=== PATIENT | female | born 1950 | race Caucasian/White ===

== ENCOUNTER 2025-06-08 22:24 | Inpatient (IN) | payer MEDICARE, BC, SELFPAY ==
[2025-06-08 15:05] VITALS: BP 161/63
[2025-06-08 16:02] LABS: Hematocrit 31.9 % (37.0-47.0); Hemoglobin 11.5 g/dL (12.0-16.0); Mean Corp Hgb Conc. 36.1 g/dL (33.0-37.0); Mean Corpuscular Volume 84.2 fL (81.0-99.0); Nucleated Red Blood Cells % 0 %; Platelet Count 257 10^3/uL (130-400); Red Cell Dist. Width 12.0 % (11.5-14.5)
[2025-06-08 16:05] LABS: Urine Character Slightly Cloudy (Clear)
[2025-06-08 16:10] LABS: ALT (SGPT) 21 U/L (0-35); AST (SGOT) 23 U/L (14-36); Albumin 4.6 g/dl (3.5-5.0); Alkaline Phosphatase 57 U/L (38-126); Blood Urea Nitrogen 26 mg/dl (7-17); Calcium 9.3 mg/dl (8.4-10.2); Carbon Dioxide 26 mmol/L (22-30); Chloride 90 mmol/L (98-107); Glucose 169 mg/dl (70-99); Lipase 160 U/L (23-300); Potassium 3.5 mmol/L (3.5-5.1); Sodium 123 mmol/L (135-145); Total Protein 7.6 g/dl (6.3-8.2); eGFR > 60.00
[2025-06-08 16:47] LABS: Urine Red Blood Cell >100 /HPF (0-2); Urine Squamous Cell 0-2 /LPF (Few)
[2025-06-08 17:03] VITALS: BP 179/74
[2025-06-08] MEDS: NSS 500 IV (18:28)
--- NOTE | 2025-06-08 20:52 | ED.GENMED ---
History of Present Illness
General
Chief Complaint: Fainting Sensation
Source: patient
Exam Limitations: none
Time Seen by Provider: 06/08/25 17:57
Nursing documentation reviewed up to this point in time: agreed with
History of Present Illness
History of Present Illness:
Patient to ED wtih complaint of 'not feeling well'. Reports cold symtpoms started approx 2 days ago. Yesterday she noticed that her urine looked dark so she increased her fluid intake. Today she was still not feeling well and went to PCP for
eval. While in office she had 2 episodes of near syncopy. Sent to ED by PCP. Denies fever/chills, n/v/d. Decreased appetite. Denies any SOB, CP/pressure. No prior history of same.
Past History
Past History
ED Past Medical History: HTN, Hypercholesterolemia and Other (Endometrial cancer, hypercholesterol, hypertension, diabetes type 2)
ED Past Surgical History: Gynecological
Social History
Tobacco: Non-smoker
Alcohol: Occasional
Drug: None
Living: with family
Review of Systems
Review of Systems
Allergies reviewed?: Yes
All Other Systems: ROS reviewed and negative except as documented in HPI and ROS
Constitutional: Reports fatigue
EENT: Reports no symptoms
Respiratory: Reports no symptoms
Cardiac: Reports no symptoms
ABD/GI: Reports other (decreased appetite)
: Reports dark urine
Musculoskeletal: Reports no symptoms
Skin: Reports no symptoms
Neurological: Reports weakness
Psychiatric: Reports no symptoms
Phy Exam
General Physical Exam
General Presentation: mild distress
General age: appears stated age
General Skin: warm and dry
General Habitus: normal
General Mental: alert
Cardiovascular Exam
Cardiovascular Exam: regular rate/rhythm and no edema
Pulmonary Exam
Pulmonary Exam: lungs clear and no respiratory distress
Gastrointestinal Exam
Gastrointestinal Exam: normal bowel sounds, soft, no organomegaly, no pulsatile mass, non distended and no cva tenderness
Palpation: left lower quadrant: Moderate tenderness and right lower quadrant: Moderate tenderness
Musculoskeletal Exam
Musculoskeletal Exam: full ROM and neuro vasc intact
Skin Exam
Skin Exam: normal color, warm/dry and no rash
Psychiatric Exam
Psychiatric Exam: normal mood/affect
Course
Orders/Labs/Results
Orders:
Orders
06/08/25 15:03
EKG [Electrocardiogram (*1)] Urgent
Reason for Study: Syncope
EKG- Treatment ONCE
06/08/25 15:40
Complete Blood Count/With Diff Urgent
Comprehensive Metabolic Panel Urgent
Lipase Urgent
TSH Urgent
Comment: ADD ON
Urinalysis Reflex To Culture Urgent
Date Specimen was Collected: 06/08/25
Time Specimen was Collected: 15:12
Urine Microscopic Reflex Cult Urgent
Urine Culture Urgent
GEETA Source: U
Specimen Description:
Date Specimen was Collected: 06/08/25
Time Specimen was Collected: 15:12
06/08/25 18:19
0.9% Sodium Chloride 500 ml [Nss] 500 ml IV BOLUS
06/08/25 18:20
CT Abd/pelvis W Iv Cont Urgent
Comment:
Reason For Exam: lower abd pain, nausea
06/08/25 21:34
Add On- LAB Stat
Tests Added?: TSH
Osmolality, Random Urine Stat
Date Specimen was Collected: 06/08/25
Time Specimen was Collected: 22:28
Urine Sodium Stat
Date Specimen was Collected: 06/08/25
Time Specimen was Collected: 22:28
06/08/25 21:39
Admit/Transfer Patient As Directed
Co-Sign Provider:
Level of Care: Inpatient admission
Assign to:: Telemetry
Physician / Group: Xochitl
Diagnosis: Hyponatremia
Reason for Telemetry: Syncope
Date to Stop Telemetry: 06/10/25
Time to Stop Telemetry: 11:00
Reason for Hospitalization: Hyponatremia
Expected length of stay greater than two midnights?: Yes
ELOS- Estimated Length of Stay in days: 2
I certify the patient meets the requirements for IP care: Yes
PRN Pain Medication Management As Directed
May give lesser potent ordered pain med per pt: Yes
preference::
Protocol:: Medication orders for pain may be administered in a
manner that supports deferring to patient preference
when the pt is:
- Requesting an ordered lesser potent pain medication.
Least to most potent pain medications are defined
as: acetaminophen < NSAID < tramadol < opioids
(morphine, oxycodone, hydromorphone).
- Requesting a lesser dose of the same medication IF
ORDERED.
- Requesting a less intrusive route of administration
if both routes are prescribed by the provider (PO <
IV).
06/08/25 21:40
Code Status As Directed
Resuscitation Status: Full Code
06/08/25 22:41
Acetaminophen [Tylenol] 650 mg PO DAILYPRN PRN mild pain
Bisacodyl [Dulcolax] 10 mg RECTAL [id number] PRN
Docusate W/Senna [Senokot-S] 1 tablet PO BIDPRN PRN
Ondansetron Injectable [Zofran] 4 mg IV Q6HPRN PRN
Polyethylene Glycol Powder [Miralax] 17 grams PO DAILYPRN PRN
06/08/25 22:41
Activity As Directed
Activity Level: With Assistance
Bedside Glucose Monitoring As Directed
Frequency: AC&HS
Orthostatic Vital Signs As Directed
Orthostatic VS Frequency: Now
Pneumatic Compression Sleeves As Directed
Type: Knee high
Vital Signs As Directed
Frequency: Per unit guidelines
DX Deep Vein Thrombosis Video Routine
06/08/25 23:30
BMP [Basic Metabolic Panel] Routine
06/09/25 Breakfast
1800 calorie (15 carb) Diabetic
At Your Request: Full Participation
Does patient need a safe tray?: No
Fluid Restriction: 1000 mL/day (33 oz)
06/09/25 06:33
Basic Metabolic Panel IN AM
Complete Blood Count/No Diff IN AM
Magnesium IN AM
06/09/25 07:30
Insulin Aspart Corrective Low [Novolog Flexpen-Low Resistance] See Protocol SC AC
06/09/25 08:00
Ezetimibe [Zetia] 10 mg PO DAILY
Losartan [Cozaar] 50 mg PO DAILY
06/09/25 18:00
Pravastatin Sodium [Pravachol] 20 mg PO MOWEFR@1800
06/10/25 11:00
DC Protocol for Telemetry ONCE
Abnormal Lab Results
06/08/25
15:40
RBC 3.79 L 10^6/uL
(4.20-5.40)
Hgb 11.5 L g/dL
(12.0-16.0)
Hct 31.9 L %
(37.0-47.0)
Abs Immat Gran (auto) 0.2 H 10^3/uL
(0-0.05)
Absolute Neuts (auto) 8.7 H 10^3/uL
(1.4-6.5)
Absolute Lymphs (auto) 1.1 L 10^3/uL
(1.2-3.4)
Immature Gran % 1.5 H %
(0-0.5)
Neutrophils % 81.6 H %
(42.2-75.2)
Lymphocytes % 10.6 L %
(20.5-51.1)
Sodium 123 L mmol/L
(135-145)
Chloride 90 L mmol/L
(98-107)
BUN 26 H mg/dl
(7-17)
Glucose 169 H mg/dl
(70-99)
Ur Occult Blood Reflex 4+ A
(Negative)
Leukocyte Esterase Rfl 2+ A
(Negative)
Urine RBC >100 A /HPF
(0-2)
Urine Bacteria (Reflex) Few A
(Negative)
Urine Albumin (Reflex) 3+ A
(Neg - Trace)
06/08/25 15:40
06/08/25 15:40
Vital Signs
Initial and Last Documented VS:
Initial Vital Signs
Temp Pulse Resp BP Pulse Ox
98.3 F 62 16 161/63 100
06/08/25 15:05 06/08/25 15:05 06/08/25 15:05 06/08/25 15:05 06/08/25 15:05
Last Documented Vital Signs
Temp Pulse Resp BP Pulse Ox
98.7 F 85 18 131/89 97
06/09/25 15:15 06/09/25 15:15 06/09/25 15:15 06/09/25 15:15 06/09/25 15:15
*Radiology
Radiology exam reviewed: radiology read reviewed
*Pulse Oximetry
SaO2: 99
Oxygen Mode of Delivery: Room air
Patient hypoxic: no
*Critical Care Note
Total Time (30-74mins, 75-104mins- exclusive of procedures): Not Applicable
Update Note
Update Note:
Patient to ED wt complaint of weakness, 2 near syncopy episodes today. VSS, she remains afebrile. Labs reviewed. Na 123. Patient reports she had a prior episode of hyponatremia approx 1 year while on a cruise. Reports vomiting and diarrhea at
that time and hyponatremia was attibuted to these symptoms. Yesterday patient reports increasing her water intake but report having lilttle to eat or drink today. Will admit to hospitalist for hyponatremia. SHe also has mod pelvic tenderness on
exam. Microscopic blood on urinalysis. No evidence of UTI. CT result reviews, concern for bladder neoplasm. Patient updated on new bladder findings. Dr. Wyatt notified of findings and will follw up with patient in office after discharge.
ED Attending Note
-
Portions of this chart may have been created with voice recognition software.� Occasional wrong word or��sound alike� substitutions may have occurred due to the inherent limitations of voice recognition software.
Discharge Plan
Departure
Patient Disposition: Admit
Date of Disposition: 06/08/25
Time of Disposition: 21:01
Presentation/result/management discussed w/ accepting MD/DO: Hospitalist
Patient with high blood pressure during this ER visit?: No
Condition: Fair
Covid-19: Not Applicable
Discharge Problem:
Acute hyponatremia, Weakness
Interventions
Interventions:
*Risk Screen - Suicide Last Done: 06/08/25 22:50
*General Assessment Last Done: 06/08/25 15:05
*Neglect/Abuse Screening Last Done: 06/08/25 15:05
*ED COVID-19 Vaccine History Last Done: 06/08/25 22:50
*Nursing Disposition Last Done: 06/08/25 22:38
ED- Cardiac Assessment Last Done: 06/08/25 18:18
ED- Neurological Assessment Last Done: 06/08/25 18:18
Discharge Date and Time
Discharge Date/Time: 06/08/25 22:38
--- NOTE | 2025-06-08 21:11 | HPS.HSE ---
Family Physician
-
Family Physician: Yaya Boyle
Chief Complaint
-
Near syncope
History of Present Illness
This is a 74-year-old female with past medical history significant for cxf-vdklbkr-qpshuftyk diabetes, hyperlipidemia, hypertension presenting to the emergency department with complaints of cold symptoms for approximately 2 days and having 2
episodes of near syncope at PMD clinic.
Patient complaint that started about 2 days ago she stated having a very bad colored urine. He also has had increased pelvic pressure. She denied fever. She denies any dysuria incontinence or urgency. She thought that she might have a urinary
tract infection. She also thought that she was having dehydrated. So she started drinking large quantities of water. She was drinking 16 ounces of a bottle of water every 2-3 hours. She was also using urinating quite frequently. She denied any
diarrhea or vomiting. She had mild nausea. She otherwise reports no recent changes in medications and no changes in appetite. She had no chills.
At the PMDs office the patient reported that she felt that her mouth was dry and they needed to lay down. At a time she was found to have a blood pressure of 150 systolic and was sent to the emergency department because she appeared to have
presyncopal episode.
She had an episode of hyponatremia 1 year ago while in the close in the setting of gastroenteritis and dehydration. At that time a triamterene-hydrochlorothiazide was discontinued and she was placed on losartan hydrochlorothiazide. She denies any
other medications. Found to be hyponatremic to 123 in the emergency department today.
In the Emergency Department patient was actually hypertensive at 179/74 with a pulse rate of 74 and satting 98% on room air. Temperature was 98.4.
ECG shows a normal sinus rhythm at a rate of 76. UA was positive for RBCs and few bacteria.
White count 10.7 hemoglobin 11.8 platelet of 254.
Sodium was 123 potassium 3.5 rest of electrolytes BUN/creatinine were normal. Leukos was normal. LFTs were normal.
CT of the abdomen pelvis shows no significant acute abnormalities except a mural base of soft tissue lesion within the urinary bladder suspicious for neoplasm.
Medical History
Past Medical History
Past Medical History: Reports HTN and Hypercholesterolemia
Past Surgical History: Reports Gynocological (Hysterectomy) and Orthopedic
Social History
Tobacco: Non-smoker
Alcohol: None
Drug: None
Family History
Family History: Not pertinent
Allergies / Home Medications
Allergies reflects when Allergies were last updated in [facility].
Home Medications with original date entered in [facility]
Allergy/Medication List:
Allergies
Allergy/AdvReac Type Severity Reaction Status Date / Time
No Known Allergies Allergy Verified 06/08/25 15:12
Home Medications
acetaminophen 325 mg tablet (Tylenol) 650 mg PO DAILYPRN PRN mild pain 06/08/25
biotin 1 tab PO DAILY 06/08/25
cholecalciferol (vitamin D3) 25 mcg (1,000 unit) tablet 25 mcg PO DAILY 06/08/25
ezetimibe 10 mg tablet 10 mg PO DAILY 06/08/25
losartan 50 mg-hydrochlorothiazide 12.5 mg tablet 1 tab PO DAILY 06/08/25
metformin 500 mg tablet,extended release 24 hr 500 mg PO DAILY 06/08/25
pravastatin 20 mg tablet 20 mg PO MOWEFR@1800 06/08/25
therapeutic multivitamin 1 tab PO DAILY 06/08/25
Review of Systems
-
Constitutional: Reports No Symptoms
EENT: Reports No Symptoms
Respiratory: Reports No Symptoms
Cardiac: Reports No Symptoms
Abdomen/GI: Reports No Symptoms
: Reports Dark Urine
Musculoskeletal: Reports No Symptoms
Skin: Reports No Symptoms
Neurological: Reports No Symptoms
Endocrine: Reports No Symptoms
Hematologic/Lymphatic: Reports No Symptoms
Psych: Reports No Symptoms
Physical Exam
Vital Signs
Vital Signs
Temp Pulse Resp BP Pulse Ox
98.4 F 74 17 179/74 99
06/08/25 17:03 06/08/25 18:15 06/08/25 18:15 06/08/25 17:03 06/08/25 21:01
Physical Exam
General: Well Developed, Well Nourished and No Apparent Distress
HEENT: NormoCephalic, Moist mucous membranes and Atraumatic
Respiratory: Clear
Cardiac: S1/S2 and Regular Rhythm; No Murmur or Rub
GI: Soft, Non Tender, Non Distended and Normal Bowel Sounds; No Organomegaly
Rectal: Deferred by Provider
Musculoskeletal: No Clubbing, No Cyanosis and No Edema
Skin: No Rash
Neuro: AO x 3 and Nonfocal/grossly intact
Laboratory Results
-
06/08/25 15:40
06/08/25 15:40
Laboratory Results
Total Bilirubin 0.9 mg/dl (0.2-1.3) 06/08/25 15:40
AST 23 U/L (14-36) 06/08/25 15:40
ALT 21 U/L (0-35) 06/08/25 15:40
Alkaline Phosphatase 57 U/L (38-126) 06/08/25 15:40
Lipase 160 U/L (23-300) 06/08/25 15:40
Data Reviewed
-
CT Scan: Report Reviewed by me
Medical Tests (Nuc Med, Echo, EKG etc): Image Personally Visualized and interpreted
Lab Data: Labs Reviewed by me
Old Records: Reviewed
Impression/Plan
-
IMPRESSION:
74-year-old female with past medical history of hypertension and hyperlipidemia as well as vax-qgdpruz-jvaeajdcq diabetes who presents to the emergency department following a presyncopal episode at the PMD clinic. She was visiting PMD clinic for
approximately 2 days of dark urine and found to have hematuria in the emergency department. Here on arrival in the emergency department she was normotensive but found to be hyponatremic to 123. CT scan shows lesion in the bladder
PLAN:
Presyncope -suspect vasovagal. No cardiac history. No history of significant dehydration. Hyponatremia does not appear to be due to dehydration. No of any medications. ECG shows normal sinus rhythm and no ischemia here.
-Admit to telemetry
- Echo in a.m.
-Orthostatic vital signs
- monitor x 24 hours
- trend H&H
Hyponatremia -suspect polydipsia hyponatremia given history of attempting to dilute urine with free water intake
-Obtain urine awesome's and urine sodium
-Check TSH
-Check orthostatic
-Hold hydrochlorothiazide
-Restrict free water to less than 1000 cc, repeat sodium in 4 hours
-Giving 500 cc bolus of normal saline, no additional fluids for now
Hematuria -gross hematuria likely secondary to bladder neoplasm, no urinary obstruction
-UA mildly positive but no signs of infection, obtain urine cultures
-Hold antibiotics for now unless febrile or develops worsening symptoms
- Dr. Wyatt said she can follow up after discharge and he will schedule a cystoscopy at that time.
DVT prophylaxis�SCDs for now
CODE STATUS�full code
[2025-06-08 22:39] LABS: TSH 1.09 uIU/ml (0.47-4.68)
[2025-06-08 22:45] VITALS: BP 165/69; BP 170/80; BP 178/70; PULSE 65; PULSE 68; PULSE 75
[2025-06-08 23:02] VITALS: BMI 33.6
[2025-06-09] VITALS (7 sets, daily range): BP systolic 131–166; BP diastolic 57–89
[2025-06-09 01:11] LABS: Blood Urea Nitrogen 22 mg/dl (7-17); Calcium 9.1 mg/dl (8.4-10.2); Carbon Dioxide 26 mmol/L (22-30); Chloride 95 mmol/L (98-107); Estimated Creatinine Clearance 60 ml/min; Glucose 132 mg/dl (70-99); Potassium 3.4 mmol/L (3.5-5.1); Sodium 129 mmol/L (135-145); eGFR > 60.00
[2025-06-09 07:13] LABS: Glucose - Point of Care 134 mg/dl (70-99)
[2025-06-09 08:25] LABS: Hematocrit 31.7 % (37.0-47.0); Hemoglobin 11.3 g/dL (12.0-16.0); Mean Corp Hgb Conc. 35.6 g/dL (33.0-37.0); Mean Corpuscular Volume 84.8 fL (81.0-99.0); Platelet Count 243 10^3/uL (130-400); Red Cell Dist. Width 12.3 % (11.5-14.5)
[2025-06-09 08:29] LABS: Blood Urea Nitrogen 21 mg/dl (7-17); Calcium 9.5 mg/dl (8.4-10.2); Carbon Dioxide 25 mmol/L (22-30); Chloride 97 mmol/L (98-107); Estimated Creatinine Clearance 68 ml/min; Glucose 129 mg/dl (70-99); Magnesium 1.9 mg/dl (1.6-2.3); Potassium 3.8 mmol/L (3.5-5.1); Sodium 130 mmol/L (135-145); eGFR > 60.00
--- NOTE | 2025-06-09 08:37 | W.PN.HOSP.TC ---
Today's Communication/Plan
-
see plan
Assessment / Plan
Assessment / Plan
Gen: NAD, AAOx3.
Eyes: EOMI, PERRLA, no scleral icterus.
Neck: supple.
CV: RRR, +S1/S2, no m/r/g.
Resp: CTAB, no rales, wheezes, or rhonchi.
Abd: +BS, soft, NT, ND
Skin: No rashes.
Neuro: CN 2-12 intact, non-focal.
Psych: Normal mood and affect.
CT A/P:
1. No significant acute abnormality identified in the abdomen or pelvis, as described above.
2. Mural-based soft tissue lesion within the urinary bladder, suspicious for neoplasm. Recommend direct visualization.
3. Mildly complex 2.0 cm right renal cyst. Recommend initial outpatient further workup with dedicated renal ultrasound.
Near syncope:
-Likely vasovagal
-monitor on tele (currently SR)
-orthostatic VS technically POS with HR increase by 10 but standing BP 165
-check echo
Hyponatremia due to psychogenic polydipsia:
-patient was attempting to dilute urine with excess free water intake
-s/p 500cc NS in ER, no further IVFs
-cont FR
-Na improved from 123 to 130
Gross hematuria:
-likely secondary to bladder lesion (possibly neoplasm), no urinary obstruction
-U/A without evidence of infection (WBC 3-5, NEG NIT), afebrile, no leukocytosis
-Dr. Wyatt stated to admitting team she can follow up after discharge and he will schedule a cystoscopy at that time. As pt with persistent hematuria she needs to be seen in c/s while hospitalized. Discussed with Dr. Stafford.
FULL/SCDs
Anticipated Discharge: Within 24 hours
Subjective/Interval History
-
Date of Service: June 09, 2025
Reports persistent hematuria.
Objective Data
-
Labs:
Laboratory Results
06/09/25 06/09/25
00:41 06:33
WBC 10.0
Hgb 11.3 L
Hct 31.7 L
Plt Count 243
Sodium 129 L 130 L
Potassium 3.4 L 3.8
Chloride 95 L 97 L
Carbon Dioxide 26 25
BUN 22 H 21 H
Creatinine 0.8 0.7
Glucose 132 H 129 H
Calcium 9.1 9.5
Vital Signs:
Vital Signs
Temp Pulse Resp BP Pulse Ox
98.7 F 76 20 152/70 98
06/09/25 07:20 06/09/25 07:20 06/09/25 07:20 06/09/25 07:20 06/09/25 07:20
I&O
06/08/25 06/09/25 06/10/25
06:59 06:59 06:59
Intake Total 120 / 120
Balance 120 / 120
[2025-06-09] MEDS: COZAAR 50 MG PO (09:35)
[2025-06-09] MEDS: ZETIA 10 MG PO (09:35)
[2025-06-09 11:49] LABS: Glucose - Point of Care 148 mg/dl (70-99)
--- NOTE | 2025-06-09 13:45 | CM ---
Patient seen bedside w/ daughterOnelia. Initial assessment completed. Patient is a 74-year-old female with past medical history significant for biw-mgghhov-nnkmzqwbl diabetes, hyperlipidemia, hypertension presenting to the emergency department with
complaints of cold symptoms for approximately 2 days and having 2 episodes of near syncope.
Patient resides w/ daughterOnelia, in a 2ST[facility], no steps to enter. Patient is independent w/ ambulation, no device required. Independent w/ ADLs, no DME. Denies SNF/HC hx.
Address, points of contacts and insurance
PCP: Yaya Boyle
Pharmacy: [facility]
Plan: Home, no needs anticipated
[2025-06-09 16:43] LABS: Glucose - Point of Care 132 mg/dl (70-99)
[2025-06-09] MEDS: PRAVACHOL 20 MG PO (17:19)
--- NOTE | 2025-06-09 17:26 | CONS.URO ---
Consultation
-
Date/Time Consultation Requested: 06/09/25
Date/Time Consultation Performed: 06/09/25 1230
Requesting Provider: Carlos Enrique
Performing Provider: Yoselin
Reason for Consultation: hematuria, bladder mass
Medical History
History of Present Illness
74F w/ no prior h/o gross or microscopic hematuria now presenting with hematuria (improving) >48 hrs.
Noted 'not feeling well' 2-3 days ago w/ cold symptoms.
Urine was tea-colored and dark in appearance - increased fluid intake to dilute urine.
Admitted for hyponatremia.
CT imaging demonstrated 1.8 cm soft tissue mass.
Denies prior urologic history.
Denies tobacco history.
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
Past Medical History
Past Medical History: HTN and Hypercholesterolemia
Past Surgical History: Gynocological and Orthopedic
Social History
Tobacco: Non-smoker
Alcohol: None
Drug: None
Employment: Retired
Family History
Family History: Reviewed & Not Pertinent
Allergies/Home Medications
Allergies
Allergy/AdvReac Type Severity Reaction Status Date / Time
No Known Allergies Allergy Verified 06/08/25 15:12
Home Medications
�Medication �Instructions �Recorded �Confirmed �Type
acetaminophen 325 mg tablet 650 mg PO DAILYPRN PRN mild pain 06/08/25 06/08/25 History
(Tylenol)
biotin 1 tab PO DAILY Supplement 06/08/25 06/08/25 History
cholecalciferol (vitamin D3) 25 25 mcg PO DAILY Supplement 06/08/25 06/08/25 History
mcg (1,000 unit) tablet
ezetimibe 10 mg tablet 10 mg PO DAILY Supplement 06/08/25 06/08/25 History
losartan 50 mg-hydrochlorothiazide 1 tab PO DAILY Blood Pressure 06/08/25 06/08/25 History
12.5 mg tablet
metformin 500 mg tablet,extended 500 mg PO DAILY Diabetes 06/08/25 06/08/25 History
release 24 hr
pravastatin 20 mg tablet 20 mg PO MOWEFR@1800 High 06/08/25 06/08/25 History
Cholesterol
therapeutic multivitamin 1 tab PO DAILY Supplement 06/08/25 06/08/25 History
Review of Systems
-
History Source: Patient and Family
A 12 point Review of Systems was completed except as noted: Yes
Physical Exam
Vital Signs
Vital Signs
Temp Pulse Resp BP Pulse Ox
98.7 F 85 18 131/89 97
06/09/25 15:15 06/09/25 15:15 06/09/25 15:15 06/09/25 15:15 06/09/25 15:15
Lab / Testing Results
Laboratory Results
06/09/25 06:33
06/09/25 06:33
Physical Exam
General: Well Developed, Well Nourished, No Apparent Distress and Comfortable
HEENT: Normocephalic and Anicteric
Respiratory: Non Labored Respirations
Cardiac: Regular Rhythm
Breast: Deferred by me
GI: Soft, Non Tender and Non Distended
Genito-urinary: No Costovertebral Tend and Other (tea-colored urine)
Musculoskeletal: No Edema
Skin: Warm and Dry
Neuro: AO x 3, No Motor Deficits and Nonfocal/Grossly Intact
Hematologic/Lymphatic: No Lymphadenopathy
Psych: Calm and Intact Judgement
Assessment / Plan
-
Hematuria - improving
Bladder mass suspicious for tumor
H/H stable
Cr WNL
Urine output marilyn-colored - improved in 48 hrs
CTAP w/ IV contrast =>
1. No significant acute abnormality identified in the abdomen or pelvis, as described above.
2. Mural-based soft tissue lesion within the urinary bladder, suspicious for neoplasm. Recommend direct visualization.
3. Mildly complex 2.0 cm right renal cyst. Recommend initial outpatient further workup with dedicated renal ultrasound.
Discussed CT findings in context of hematuria and need for cystoscopy to r/o bladder tumor.
Detailed discussion including SDM had w/ patient regarding risks, benefits, alternatives, and potential complications of cystoscopy, TURBT, and intravesical instillation of gemcitabine.
Inpatient TURBT was discussed - given her minimal hematuria and contrast-enhanced CT imaging indicative of a small bladder tumor, patient wishes to proceed w/ outpatient cystoscopy and potential TURBT if indicated (elective).
- CT imaging/report reviewed
- Will schedule outpatient cystoscopy week of 06/21 after patient returns from trip
D/w patient and daughter at bedside.
D/w Dr. Monaco.
Data Reviewed
-
Total Time Spent with Patient (in minutes): 55
CT Scan: Image personally visualized and interpreted, Report Reviewed by Me, Discussed with Physician, Discussed with Patient and Discussed with Family
Lab Data: Labs Reviewed, Discussed with Physician, Discussed with Patient and Discussed with Family
Old Records: Reviewed
[2025-06-09] MEDS: GLUCOPHAGE XR EXTENDED RELEASE 500 MG PO (17:43)
--- NOTE | 2025-06-09 22:33 | PTCARENOTE ---
patient juice with first degree heart block, dipping to as low at 27. provider notified, this RN suggesting EKG. EKG ordered, vital signs obtained, 2 L NC placed on patient. This RN will continue to monitor
[2025-06-09 23:57] LABS: Hematocrit 32.3 % (37.0-47.0); Hemoglobin 11.3 g/dL (12.0-16.0); Mean Corp Hgb Conc. 35.0 g/dL (33.0-37.0); Mean Corpuscular Volume 87.1 fL (81.0-99.0); Platelet Count 250 10^3/uL (130-400); Red Cell Dist. Width 12.4 % (11.5-14.5)
[2025-06-10 00:26] VITALS: BP 147/57
[2025-06-10 00:26] LABS: Blood Urea Nitrogen 19 mg/dl (7-17); Calcium 9.1 mg/dl (8.4-10.2); Carbon Dioxide 28 mmol/L (22-30); Chloride 97 mmol/L (98-107); Estimated Creatinine Clearance 60 ml/min; Glucose 111 mg/dl (70-99); Magnesium 2.0 mg/dl (1.6-2.3); Potassium 4.2 mmol/L (3.5-5.1); Sodium 132 mmol/L (135-145); eGFR > 60.00
[2025-06-10 03:32] VITALS: BP 140/72
[2025-06-10 07:00] VITALS: BP 141/55
[2025-06-10 08:14] LABS: Glucose - Point of Care 129 mg/dl (70-99)
--- NOTE | 2025-06-10 09:24 | CON.CAR ---
Addendum entered and electronically signed by Layo Aguero MD 06/10/25 11:00:
I saw and examined the patient independently.
The MASK DESIGNER's note was reviewed and I agree with the note with changes/additions as noted below.
Comment:
74 yo female with PMH of HTN, hyperlipidemia admitted with dizziness/pre-syncope, hematuria,hyponatremia. We are consulted to evaluate for cardiac etiology for dizziness/pre-syncope. She currently feels back to baseline. Exam with RRR, no murmurs,
no edema. Tele: sinus, occasional PVC's. EKG: sinus, 1st degree AVB. Echo: normal LVEF, mild AR.
Dizziness/presyncope. Suspect vasovagal. No significant rhythm abnormality on tele. No significant structural heart disease on echo.
1st degree AVB: benign.
She can follow up with cardiology as needed.
Original Note:
Consultation
Consultation Request
Date/Time Consultation Requested: 06/09/25 2252
Date/Time Consultation Performed: 06/10/25 0900
Requesting Provider: Oly Bergeron NP
Performing Provider: Miriam HINSON for Dr. Aguero
Reason for Consultation: 1st degree AVB
Medical History
-
Chief Complaint: dizziness, hematuria
History of Present Illness:
74 y/o female with HTN, HLD, preDM, hx endometrial cancer s/p hysterectomy who recently noted some hematuria and started drinking a lot of fluid and went to see her medical provider. In the providers office, she was sitting and felt hot and dry
mouth and felt spotty vision and thought she might pass out so had water and laid down and felt better, but when she got up she was dizzy again so was referred to the ER. NA+ was 123. Hematuria noted and mass seen and urology planning on OP work-up.
We are consulted for 1st degree AVB and bradycardia noted on monitor. Fortunately, all telemetry reviewed by me and there was no significant bradycardia by manual count. When the monitor reported HR in 20's, it was actually in 50's. Regarding 1st
degree AVB, this is very minimal at 224 ms. She looks well at the time of my assessment.
Past Medical History
Past Medical History: HTN, Hypercholesterolemia and Other (as above )
Social History
Tobacco: Non-Smoker
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
Family History
Family History: Other (dad had heart issues and when patient was young- details unknown)
Allergies / Home Medications
Allergy/AdvReac Type Severity Reaction Status Date / Time
No Known Allergies Allergy Verified 06/08/25 15:12
�Medication �Instructions �Recorded �Confirmed �Type
acetaminophen 325 mg tablet 650 mg PO DAILYPRN PRN mild pain 06/08/25 06/08/25 History
(Tylenol)
biotin 1 tab PO DAILY Supplement 06/08/25 06/08/25 History
cholecalciferol (vitamin D3) 25 25 mcg PO DAILY Supplement 06/08/25 06/08/25 History
mcg (1,000 unit) tablet
ezetimibe 10 mg tablet 10 mg PO DAILY Supplement 06/08/25 06/08/25 History
losartan 50 mg-hydrochlorothiazide 1 tab PO DAILY Blood Pressure 06/08/25 06/08/25 History
12.5 mg tablet
metformin 500 mg tablet,extended 500 mg PO DAILY Diabetes 06/08/25 06/08/25 History
release 24 hr
pravastatin 20 mg tablet 20 mg PO MOWEFR@1800 High 06/08/25 06/08/25 History
Cholesterol
therapeutic multivitamin 1 tab PO DAILY Supplement 06/08/25 06/08/25 History
Review of Systems
-
History Source: Patient
All other systems: Negative unless noted
: Bleeding
Neurological: Dizzy
Physical Exam
Vital Signs
Temp Pulse Resp BP Pulse Ox
97.9 F 68 18 140/72 97
06/10/25 03:32 06/10/25 03:32 06/10/25 03:32 06/10/25 03:32 06/10/25 03:32
Lab Results
06/09/25 23:45
06/09/25 23:45
Physical Exam
General: Well Developed, Well Nourished and No Apparent Distress
HEENT: Normocephalic and Anicteric
Respiratory: Clear and Non Labored Respirations
Cardiac: Regular Rhythm
Musculoskeletal: No Edema
Skin: Warm and Dry
Neuro: AO x 3
Psych: Calm
Impression / Plan
-
Bradycardia, 1st degree AVB:
-ZAIN is mildly prolonged at 224 ms.
-telemetry shows no severe bradycardia. HR 70's currently, as low as 50's overnight- all sinus
-echo 06/09/25: Normal biventricular size and systolic function without regional wall motion abnormality. Stage II diastolic dysfunction suggestive of abnormal relaxation and increased filling pressures. Mild aortic regurgitation.
-no further cardiac work-up necessary
Hematuria:
-CT revealed bladder lesion, renal cyst- urology on the case and planning for OP w/u
Dizziness:
-resolved, was in setting of hyponatremia- see below
Hyponatremia:
-was drinking a lot of fluid
-improved
-off HCTZ
HTN:
-continue losartan, monitor BP's
HLD:
-on statin/zetia
Data Reviewed
-
EKG: Tracing Personally Visualized and interpreted (SB 53 BPM with 1st degree AVB, ZAIN 224 ms)
CT Scan: Report Reviewed by me (Mural-based soft tissue lesion within the urinary bladder, suspicious for neoplasm. Mildly complex 2.0 cm right renal cyst. )
Medical Tests (Nuc Med, Echo etc): Report Reviewed by me (echo 06/09/25: Normal biventricular size and systolic function without regional wall motion abnormality. Stage II diastolic dysfunction suggestive of abnormal relaxation and increased
filling pressures. Mild aortic regurgitation.)
Labs: Labs Reviewed by me
[2025-06-10] MEDS: COZAAR 50 MG PO (09:47)
[2025-06-10] MEDS: ZETIA 10 MG PO (09:47)
--- NOTE | 2025-06-10 10:35 | W.PN.HOSP.TC ---
Addendum entered and electronically signed by Nato Monaco MD 06/10/25 11:49:
Total time spent on d/c = 35 min. This included today's physical exam, progress note, review of laboratory and diagnostic data, preparation of discharge documents and prescriptions, and discussions about the pt's hospital course and discharge plan
with the patient and other medical csr involved in the patient's care.
Original Note:
Today's Communication/Plan
-
see plan
Assessment / Plan
Assessment / Plan
Gen: NAD, AAOx3.
Eyes: EOMI, PERRLA, no scleral icterus.
Neck: supple.
CV: remains RRR, +S1/S2, no m/r/g.
Resp: remains CTAB, no rales, wheezes, or rhonchi.
Abd: remains +BS, soft, NT, ND
Skin: No rashes.
Neuro: CN 2-12 intact, non-focal.
Psych: Normal mood and affect.
06/08/25 15:40 Urine Urine Culture - Preliminary
Staphylococcus species
CT A/P:
1. No significant acute abnormality identified in the abdomen or pelvis, as described above.
2. Mural-based soft tissue lesion within the urinary bladder, suspicious for neoplasm. Recommend direct visualization.
3. Mildly complex 2.0 cm right renal cyst. Recommend initial outpatient further workup with dedicated renal ultrasound.
Echo: Normal biventricular size and systolic function without regional wall motion abnormality. Stage II diastolic dysfunction suggestive of abnormal relaxation and increased filling pressures. Mild aortic regurgitation. No prior study available for
comparison.
Near syncope:
-Likely vasovagal
-monitor on tele (currently SR)
-orthostatic VS technically POS with HR increase by 10 but standing BP 165
-echo above
-pt seen by cardiology and Dr. Aguero has cleared the pt for discharge
Hyponatremia due to psychogenic polydipsia:
-patient was attempting to dilute urine with excess free water intake
-s/p 500cc NS in ER, no further IVFs
-cont FR
-Na improved from 123 to 132
Gross hematuria:
-likely secondary to bladder lesion (possibly neoplasm), no urinary obstruction
-U/A without evidence of infection (WBC 3-5, NEG NIT), afebrile, no leukocytosis
-Uro following. Discussed with Dr. Wyatt on 06/09/25. He was concerned that the patient has a UTI. Urine culture noted with staph species. Will consult ID for opinion.
-Hb stable
FULL/SCDs
Dispo: Likely d/c after seen by ID
Anticipated Discharge: Today
Subjective/Interval History
-
Date of Service: June 10, 2025
No new complaints. Urine is now much clearer.
Objective Data
-
Labs:
Laboratory Results
06/09/25
23:45
WBC 9.1
Hgb 11.3 L
Hct 32.3 L
Plt Count 250
Sodium 132 L
Potassium 4.2
Chloride 97 L
Carbon Dioxide 28
BUN 19 H
Creatinine 0.8
Glucose 111 H
Calcium 9.1
Vital Signs:
Vital Signs
Temp Pulse Resp BP Pulse Ox
98.0 F 59 18 141/55 98
06/10/25 07:00 06/10/25 07:00 06/10/25 07:00 06/10/25 07:00 06/10/25 07:00
I&O
06/09/25 06/10/25 06/11/25
06:59 06:59 06:59
Intake Total 120 / 120 520 / 520
Balance 120 / 120 520 / 520
[2025-06-10 11:00] VITALS: BP 155/78
--- NOTE | 2025-06-10 11:33 | CON.ID ---
Consultation
-
Date/Time Consultation Requested: 06/10/2025 1042
Date/Time Consultation Performed: 06/10/2025 1118
Requesting Provider: Dr. Monaco
Performing Provider: Dr. Gallardo
Reason for Consultation: Abnormal urinalysis
Chief Complaint / Past History
History of Present Illness
Esmer Baumann is a 74-year-old female with a significant past medical history of endometrial CA being evaluated at the request of Dr. Monaco in regards to an abnormal urinalysis. History is obtained from chart review, along with patient interview.
The patient presented to [facility] on 06/08 secondary to 'not feeling well'. She reported symptoms initially began approximate 48 hours prior to presentation to the ER. The day before admission she noted that her urine appeared 'dark' so
she increased her fluid intake, but on the day of admission she continued to not feel well and was seen by her PCP for eval. While in the office she reports 2 episodes of near syncope and she was sent to the emergency room for further evaluation.
No history of fevers or chills. No history of nausea, diarrhea. She denies any shortness of breath or cough.
In the ER, she was noted to be hypertensive. Urinalysis was noted to have significant RBCs, but with a paucity of white cells. Urine culture shows a staph species, and Infectious Diseases is asked to comment upon further antimicrobial management.
Patient denies any fevers or chills at present. No dysuria.
Past History
Additional Past Medical History:
HTN
HLD
hx Endometrial CA
DM type II
Additional Past Surgical History:
LIDIA
Allergy History:
No Known Allergies Allergy (Verified 06/08/25 15:12)
Medications Reviewed: Yes
Current Antibiotics:
Vanco
Social History
Tobacco: Non-Smoker
Alcohol: Occasional
Drug: None
Living: With Family
Employment: Retired
Review of Systems
Vital Signs
Temp Pulse Resp BP Pulse Ox
98.0 F 59 18 141/55 98
06/10/25 07:00 06/10/25 07:00 06/10/25 07:00 06/10/25 07:00 06/10/25 07:00
Physical Exam
Physical Exam
Constitutional: No Acute Distress, Comfortable and Non-toxic
Eyes: No Conjunctival Hemorrhage and Sclera Anicteric
Cardiovascular: S1/S2; Negative S3/S4
Pulmonary: Non Labored
Gastrointestinal: Soft, Non Tender and Non Distended
Neurological: Awake and Alert
Psychological: Calm
.
Lab / Diagnostic Study Results
06/09/25 23:45
06/09/25 23:45
Abs Immat Gran (auto) 0.2 10^3/uL (0-0.05) H 06/08/25 15:40
Absolute Neuts (auto) 8.7 10^3/uL (1.4-6.5) H 06/08/25 15:40
Absolute Lymphs (auto) 1.1 10^3/uL (1.2-3.4) L 06/08/25 15:40
Absolute Monos (auto) 0.6 10^3/uL (0.1-0.6) 06/08/25 15:40
Absolute Basos (auto) 0.0 10^3/uL (0-0.2) 06/08/25 15:40
Immature Gran % 1.5 % (0-0.5) H 06/08/25 15:40
Neutrophils % 81.6 % (42.2-75.2) H 06/08/25 15:40
Lymphocytes % 10.6 % (20.5-51.1) L 06/08/25 15:40
Monocytes % 5.7 % (1.7-9.3) 06/08/25 15:40
Eosinophils % 0.2 % (0-6) 06/08/25 15:40
Basophils % 0.4 % (0-2) 06/08/25 15:40
Ur Squamous Epith Cells 0-2 /LPF (Few) 06/08/25 15:40
Microbiology Results
Micro:
06/08/25 15:40 Urine Culture - Preliminary
Urine Staphylococcus species (70k cfu/mL)
Imaging:
06/08/2025 CT abdomen/pelvis with contrast : 1. No significant acute abnormality identified in the abdomen or pelvis, as described above. 2. Mural-based soft tissue lesion within the urinary bladder, suspicious for neoplasm. Recommend direct
visualization. 3. Mildly complex 2.0 cm right renal cyst. Recommend initial outpatient further workup with dedicated renal ultrasound.
Assessment / Plan
Presyncopal events
Hematuria
Bladder mass; awaiting workup
HTN
HLD
Endometrial CA
DM type II
Recommendations:
Urinalysis without significant pyuria. [place] count of recovered staph species less than 70,000, and patient without symptomatology.
No need for antibiotic coverage at present.
Discontinue antibiotics. Maintain good fluid hydration.
No objection from discharge from ID standpoint.
Patient to follow-up with Urology regarding bladder mass as an outpatient.
Care Review
Plan reviewed with: Physician (Hospitalist; Urology)
--- NOTE | 2025-06-10 11:37 | W.PN.UPDATE ---
Update Note
Progress Note Update
CT findings indicative of 1.8 cm mural lesion in bladder - suspicious for small bladder tumor.
Discussed diagnostic cysto and plans for blue light TURBT + intravesical gemcitabine (pending cysto findings) at length w/ patient and daughter.
Plan:
- OK to d/c home from urologic perspective
- Patient scheduled for diagnostic cysto on 06/22 after returning from trip (per patient request)
D/w Dr. Monaco.
D/w patient and daughter.
--- NOTE | 2025-06-10 12:18 | CM ---
Chart reviewed. Patient for d/c today
Spoke w/ patient, aware of d/c. Daughter will transport home
IMM verbally reviewed, copy provided, copy on chart
No needs at this time
Plan: Home, no needs
--- NOTE | 2025-06-10 15:28 | W.DCSUMMARY ---
Discharge Summary
Discharge Data
Date of Admission: 06/08/25
Date of Discharge: 06/10/25
-
Pending Results: No
Hospital Course
Primary diagnoses:
Hematuria
Bladder mass
Near syncope which was likely vasovagal
Hyponatremia due to psychogenic polydipsia
Secondary diagnoses:
Obesity due to excess calories
Consultants:
Neurology
Infectious disease
Imaging:
CT A/P:
1. No significant acute abnormality identified in the abdomen or pelvis, as described above.
2. Mural-based soft tissue lesion within the urinary bladder, suspicious for neoplasm. Recommend direct visualization.
3. Mildly complex 2.0 cm right renal cyst. Recommend initial outpatient further workup with dedicated renal ultrasound.
Echo: Normal biventricular size and systolic function without regional wall motion abnormality. Stage II diastolic dysfunction suggestive of abnormal relaxation and increased filling pressures. Mild aortic regurgitation. No prior study available for
comparison.
74-year-old female who presented with a chief complaints of near syncope as outlined in the H&P done on admission. Hospital course by problem list:
Near syncope: This was likely vasovagal. The patient was seen in consultation by cardiology. The patient had no concerning rhythms on telemetry. Orthostatic vital signs were technically positive with HR increase by 10 but standing BP 165. Echo
above. Dr. Aguero cleared the patient for discharge.
Hyponatremia due to psychogenic polydipsia: The patient was attempting to dilute urine with excess free water intake. She received 500cc NS in ER followed by a fluid restriction. Her Na improved from 123 to 132.
Gross hematuria: Imaging above. This was likely secondary to bladder lesion (possibly neoplasm), no urinary obstruction. UTI was ruled out while hospitalized. The patient's hemoglobin remained stable and her urine somewhat cleared. As per
Yoselin the patient will have an outpatient TURBT.
Discharge Plan
-
Patient Disposition: Home (Routine Discharge)
Discharge Diagnosis/Procedures: Hematuria, bladder mass, near syncope which was likely vasovagal, hyponatremia due to psychogenic polydipsia
Condition: Good
Diet: Diabetic, Carb Controlled
Activity: As tolerated
Driving Restrictions: As prior to admission
Blood Work: BMP and CBC in 1 week, prescription from PCP
Referrals:
Layo Aguero MD [Active, Cardiology]
Referral Note: as needed
J Luis Wyatt MD [Active, Urology]
Referral Note: Please call [phone] to schedule a preop visit and cystoscopy the week of 06/21/[address] Wyatt.
Yaya Boyle DO [Family Provider, Internal Medicine]
Prescriptions:
Continued
acetaminophen [Tylenol] 325 mg Tablet
650 mg PO DAILYPRN PRN (Reason: mild pain)
therapeutic multivitamin Tablet
1 tab PO DAILY
pravastatin 20 mg tablet
20 mg PO MOWEFR@1800
losartan-hydrochlorothiazide 50-12.5 mg tablet
1 tab PO DAILY
metformin 500 mg tablet extended release 24 hr
500 mg PO DAILY
ezetimibe 10 mg tablet
10 mg PO DAILY
cholecalciferol (vitamin D3) 25 mcg (1,000 unit) Tablet
25 mcg PO DAILY
biotin
1 tab PO DAILY
Discharge Orders:
Discharge Patient (As Directed); Ordered 06/10/25
Ordered By: Nato Monaco
Discharge Date and Time
Discharge Date/Time: 06/10/25 13:22
Print Language: [place]
== END 2025-06-10 13:22 | disposition home or self-care (01) | DRG 641 ==
LOC: 4 WEST ACU 22:24
PROVIDERS: ADMITTING PHYSICIAN Internal Medicine; ATTENDING PHYSICIAN Internal Medicine; CONSULT PHYSICIAN Internal Medicine Infectious Disease; EMERGENCY PHYSICIAN Emergency Medicine; FAMILY PHYSICIAN Internal Medicine; OTHER PHYSICIAN Internal Medicine; OTHER PHYSICIAN Surgery
DX: E87.1 Hypo-osmolality and hyponatremia (principal); E11.9 Type 2 diabetes mellitus without complications; E78.00 Pure hypercholesterolemia, unspecified; I10 Essential (primary) hypertension; E86.0 Dehydration; R63.1 Polydipsia; I44.0 Atrioventricular block, first degree; R82.90 Unspecified abnormal findings in urine; E66.09 Other obesity due to excess calories; J00 Acute nasopharyngitis [common cold]; I49.3 Ventricular premature depolarization; R31.0 Gross hematuria; D49.4 Neoplasm of unspecified behavior of bladder; N28.1 Cyst of kidney, acquired; Z85.42 Personal history of malignant neoplasm of other parts of uterus; Z90.710 Acquired absence of both cervix and uterus; Z79.84 Long term (current) use of oral hypoglycemic drugs; Z68.33 Body mass index [BMI] 33.0-33.9, adult
CPT/HCPCS: 74177; 80048; 80053; 81003; 81015; 82962; 83690; 83735; 83935; 84300; 84443; 85025; 85027; 87086; 87147; 87186; 93005; 93306; 96360; 99285; Q9967

== ENCOUNTER 2025-07-05 05:54 | Day surgery (SDC) | payer MEDICARE, BC, SELFPAY ==
[2025-07-05] VITALS (11 sets, daily range): BP systolic 115–181; BP diastolic 40–76; BMI 32.2
[2025-07-05] MEDS: CYSVIEW KIT 100 MG INTRAVES (06:20)
[2025-07-05] MEDS: NORMOSOL-R/PLASMALYTE-A 1000 IV (06:30)
[2025-07-05 06:40] LABS: Glucose - Point of Care 138 mg/dl (70-99)
[2025-07-05 08:32] LABS: Glucose - Point of Care 120 mg/dl (70-99)
[2025-07-05] MEDS: SYRINGE NON-PUMP 50 ML IRRIG ×2 (08:44→08:45)
[2025-07-05] MEDS: SYRINGE NON-PUMP 50 MG IRRIG ×2 (08:44→08:45)
--- NOTE | 2025-07-05 12:00 | HP.FOC2 ---
Focused History & Physical
Chief Complaint
HPI:
Chief Complaint: hematuria, bladder tumor
HPI / Indication for Planned Procedure: 75F initially admitted in 05/2025 with hematuria and hyponatremia.
CT imaging notable for a bladder tumor (soft tissue lesion from mural base suspicious for neoplasm).
Patient subsequently underwent diagnostic cystoscopy in the office confirming a papillary bladdre tumor.
Relevant Past Medical History: Hypertension and Other (NIDDM, HLD)
Relevant Past Surgical History: Positive for (hysterectomy, orthopedic surgery)
Review of Systems
Review of Pertinent Systems: All Systems Negative
Medication
See Medication form for detailed medications: Yes
Medication List (including Herbals & OTC):
acetaminophen 325 mg tablet (Tylenol) 650 mg PO DAILYPRN PRN mild pain 06/08/25
biotin 1 tab PO DAILY Supplement 06/08/25
cholecalciferol (vitamin D3) 25 mcg (1,000 unit) tablet 25 mcg PO DAILY Supplement 06/08/25
ezetimibe 10 mg tablet 10 mg PO DAILY Supplement 06/08/25
losartan 50 mg-hydrochlorothiazide 12.5 mg tablet 1 tab PO DAILY Blood Pressure 06/08/25
metformin 500 mg tablet,extended release 24 hr 500 mg PO QPM with evening meal 06/08/25
pravastatin 20 mg tablet 20 mg PO MOWEFR in the AM 06/08/25
therapeutic multivitamin 1 tab PO DAILY Supplement 06/08/25
albuterol 90 mcg-budesonide 80 mcg/actuation HFA aerosol inhaler 2 inh inhalation ONCE PRN SOB/wheeze/Allergies 06/30/25
clobetasol 0.05 % topical cream 1 applic topical BID PRN flare ups 06/30/25
loratadine 10 mg tablet (Claritin) 10 mg PO DAILY PRN allergies 06/30/25
Medications Reviewed: Yes
Allergies and Reactions
Patient has Allergies: No
Noted Allergies and Reactions:
Allergy/AdvReac Type Severity Reaction Status Date / Time
No Known Allergies Allergy Verified 07/05/25 06:16
Pertinent Physical Exam
All Other Systems: Negative
Head/Neck: Normal
Lungs: Normal
Heart: Normal
Abdomen: Normal
Extremities: Normal
Neurological: Normal
Diagnosis / Assessment
Bladder tumor indicative of urothelial carcinoma
Gross hematuria
Plan / Procedure
To OR on 07/05/25 for intravesical instillation of [place] + blue light TURBT + intravesical gemcitabine chemotherapy
CT imaging reviewed
Cystoscopy report reviewed
Anesthesia/Sedation to be done by Anesthesia Provider: Yes
== END 2025-07-05 10:50 | disposition home or self-care (01) ==
LOC: SDS 05:54
PROVIDERS: ATTENDING PHYSICIAN Surgery
DX: C67.0 Malignant neoplasm of trigone of bladder (principal)
CPT/HCPCS: 52234; C9738; 82962; 88307; A9589; J9201